=== PATIENT | male | born 1990 | race Caucasian/White ===

== ENCOUNTER 2020-01-10 05:53 | Emergency (ER) | payer OTHER, SELFPAY ==
[2020-01-10 05:53] VITALS: BP 147/86; PULSE 83; RESP 16; TEMP 37.2; O2SAT 96; BMI 30.7
--- NOTE | 2020-01-10 06:01 | ED.VISSUMM ---
- ER Visit Summary Date of Service: 01/10/20 Chief Complaint: Fever, body aches, shortness of breath History of Present Illness: The patient is a 29 M who presents with fever, body aches and shortness of breath. Been ongoing for 3 days. He states that his body aches. His temperature yesterday was 101 ?F. Early this morning is 100 degrees. He has had a very mild cough. He does feel short of breath. His throat is mildly sore as well. 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 He has taken nothing for this at home. He is a smoker. He denies any other symptoms. He has no other health issues. Physical Examination: Vital signs reviewed. HEENT exam unremarkable. Heart is regular rate and rhythm without murmurs. Lungs are clear to auscultation. Abdomen is soft and nontender. Extremities reveal no edema. Skin exam normal. Neurologic exam normal. Test Results: Coronavirus testing is pending Emergency Department Course and Treatment: Patient was given Tylenol. Overall he looks well. This is likely a virus causing this. His lung sounds are clear. His throat is nonerythematous. His vital signs are normal. His temperature is normal here. I do not feel he requires any further testing except for a coronavirus test. Patient will be instructed to use NSAIDs at home for his symptoms. He will be given a work excuse until his test returns. Treatment Plan: [] Disposition: Discharge Impression: Fever, suspected COVID-19 This note was generated with [employer] dictation software. It may contain incorrect words, spelling, and punctuation that were not noted in review of the chart prior to signing ED Disposition - Plan for ED Patient: Disposition: Home or Assisted Living Instructions: ED Viral Syndrome Referrals: Care Physician,No Primary [Primary Care Provider] -
[2020-01-10] MEDS: Acetaminophen 500 MG Tablet 1000 MG PO (06:05)
[2020-01-10 06:16] VITALS: BP 130/78; RESP 16
== END 2020-01-10 06:21 | disposition home or self-care (01) ==
LOC: ED 06:19
PROVIDERS: Emergency Provider Emergency Medicine
DX: R50.9 Fever, unspecified (principal); F17.200 Nicotine dependence, unspecified, uncomplicated
CPT/HCPCS: 87635; 99283; G2023; U0003

== ENCOUNTER 2022-10-04 00:55 | Emergency (ER) | payer OTHER, SELFPAY ==
[2022-10-04 00:56] VITALS: BP 147/79; PULSE 78; RESP 16; TEMP 36.3; O2SAT 99; BMI 30.1
--- NOTE | 2022-10-04 01:14 | EDS_ITS ---
HPI History of Present Illness Chief Complaint: Dental Detail of Chief Complaint: Left upper jaw dental pain. Informant: patient Onset/Context/Timing Onset: Today and Hours Context: Gradual Onset Timing: Continuous Current Severity: Moderate Maximum Severity: Moderate Relieved by: NSAIDs Associated Symptoms Assocated Symptom - Dental: Negative for fever, jaw swelling, face swelling, cold sensitivity or hot sensitivity Narrative Narrative: 32-year-old male no seen past medical or surgical history. He has had left upp er jaw dental pain last several days. Has been using ibuprofen without relief. Denies any fever or chills. Said it began after eating steak. He knows he has some dentition and needs dental work. Denies any facial swelling or trouble breathing or swallowing. States that the dental pain is going noisier and causing him a headache also. Prior similar symptoms: Yes Recent Illness/Hospitalization: No PFSH PFSH Medical History no medical history no medical history Home Medications penicillin V potassium 500 mg tablet 500 mg PO 4X/DAY #40 tabs 10/04/22 [Rx Last Taken Unknown] Allergy/AdvReac Type Severity Reaction Status Date / Time No Known Allergies Allergy Verified 10/04/22 00:58 Surgical History no surgical history no surgical history Social History Smoking Status: Current every day smoker tobacco type: cigarettes ROS ROS ED ROS Narrative Dental pain. No fever or chills. Review of Systems ROS Unobtainable: Denies due to encephalopathy Constitutional Constitutional ED: Denies chills or fever(s) Eyes Eyes: Denies blurry vision ENT ENT ED: Denies ear pain, rhinorrhea or sore throat Cardiovascular Cardiovascular: Denies chest pain Respiratory/Chest Respiratory/Chest: Denies cough or dyspnea Gastrointestinal Gastrointestinal: Denies abdominal pain Genitourinary Genitourinary ED: Denies dysuria or hematuria Musculoskeletal Musculoskeletal: Denies arthralgias Integumentary Denies abscess Neurologic Neurologic: Reports headache(s) Psychiatric Psychiatric: Denies anxiety Endocrine Endocrinology: Denies cold intolerance Hematologic/Lymphatic Hematologic/Lymphatic: Denies easy bleeding Allergic/Immunologic Allergic/Immunologic ED: Denies mouth swelling or tongue swelling EXAM Physical Exam Narrative Exam Narrative: Well-appearing young male. Vital signs stable afebrile. H EENT exam unremarkable except very poor upper dentition with multiple decaying teeth. Multiple cavities. Cracked and broken teeth. No abscess. No gingivitis. No swelling of the floor of his mouth. Posterior pharynx is normal. No trouble swallowing or breathing. Neck nontender no lymphadenopathy. Lungs clear. Heart regular rhythm. Abdomen soft. Moving all 4 extremities. Neurologic exam normal. NIH is 0. 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 Dorsi plantarflexion intact. Fingertip to nose [id number] within normal limits. Const Vital Signs: 10/04/22 00:56 Temperature 97.3 F L Temperature Source Temporal Pulse Rate 78 Respiratory Rate 16 Blood Pressure 147/79 H Blood Pressure Mean 101 Pulse Ox 99 Oxygen Delivery Method Room Air Positive well nourished and well developed; Negative for obese, cachectic, contractures or unkempt General Appearance ED: well developed and NAD; Negative for unkempt, cachectic, contractures, pallor or other Nutritional Appearance: Negative for cachectic or obese HEENT Denies other Negative for trauma, tenderness or other Face and Sinus: sinuses nontender Mouth ED: Yes oral and palatal mucosa normal, Yes lips normal, Yes tongue normal, Yes salivary gland normal, No mouth trauma and No salivary gland abnormal Mouth: oral and palatal mucosa normal, lips normal, tongue normal, salivary gland normal, No mouth trauma and No salivary gland abnormal Teeth and Gingiva: abnormal tooth and associated gingiva, caries, poor dentition and teeth discoloration; Negative for gingiva abnormal Throat: posterior oropharynx normal Eyes PERRL and EOMs intact bilaterally General Eye ED: Negative for pale conjunctiva Neck no lymphadenopathy, supple and no JVD General: normal visual inspection; Negative for anterior neck swelling, tenderness or submandibular swelling Lymph Lymphatic: no lymphadenopathy noted; Negative for lymphadenopathy Chest Wall inspection of chest normal and palpation of chest normal Resp normal respiratory effort, no retractions and clear to auscultation bilaterally Effort and Inspection: Negative for other Cardio regular rate, regular rhythm, S1 normal heart sound, S2 normal heart sound and no murmurs Jugular Venous Distention: Negative for other Palpation: Negative for palpable S3 Rate: Negative for bradycardia Rhythm: Negative for abnormal rhythm GI normal to inspection, nondistended, normoactive bowel sounds, non-tender, non- distended and no masses Inspection: Negative for other Palpation: soft Extremity normal to inspection and no joint enlargement General Extremety ED: Negative for edema General Extremity: Negative for edema Neuro oriented x3, CN's II-XII intact bilaterally, moves all extremities, no focal motor deficits and no sensory deficits noted Sensorium / Orientation: alert, oriented to person, oriented to place and oriented to time; Negative for orientation impaired Gait (Neuro): Negative for normal gait Motor Exam: strength 5/5 throughout Psych mental status grossly normal Appearance: Negative for unkempt Attitude: No agitated Mood & Affect: Negative for depressed, anxious or tearful Skin no rashes or lesions noted and no wounds General Skin Exam: Negative for pallor Image ED - URI/Dental Diagram: 1. Left upper dental decay, cracked teeth and multiple cavities. No gingivitis. No abscess. No trismus. No facial swelling. MDM MDM MDM Narrative Medical decision making narrative: 32-year-old male with dental pain secondary to dental cavities decay. We discussed treatment options. I did a dental block using Marcaine. Patient got relief within minutes. There is no abscess or anything needs drained. I will use Motrin and Tylenol for pain. He will call his dental insurance to get a dentist to follow-up with. He will be placed on Pen-Vee K 500 4 times daily for 10 days. History & Record Review Discussion w/independent historian: Patient Procedures Other Procedures Procedure(s): Left upper jaw dental block. Marcaine x2 injected around the first premolar. Patient had significant relief within minutes. Discharge Plan Triage Chief Complaint: Dental ED Provider: Zay Wilson Dx/Rx/DC Orders Clinical Impression: Dental cavities, Pain due to dental caries Instructions: ED Dental Pain, ED Dental Cavity Prescriptions: New penicillin V potassium 500 mg tablet 500 mg PO 4X/DAY Qty: 40 0RF Primary Care Provider: Care Physician,No Primary Referrals: Care Physician,No Primary [Primary Care Provider] - Activity Restrictions/Additional Instructions: Alternate Motrin and Tylenol for pain. The penicillin antibiotic 1 pill 4 times a day for 10 days. Call your insurance tomorrow, they can refer you to a dentist that is in your plan. See a dentist as soon as possible. Disposition Disposition: Home, Self Care
== END 2022-10-04 01:30 | disposition home or self-care (01) ==
LOC: ED 01:28
PROVIDERS: Emergency Provider Emergency Medicine; Visit Provider Emergency Medicine
DX: K02.9 Dental caries, unspecified (principal); K08.89 Other specified disorders of teeth and supporting structures; F17.210 Nicotine dependence, cigarettes, uncomplicated
CPT/HCPCS: 64999; 99282